=== PATIENT | male | born 2000 | race Caucasian/White ===

== ENCOUNTER 2024-09-06 06:15 | Emergency (ER) | payer SELFPAY ==
[2024-09-06 06:18] VITALS: BP 135/92
[2024-09-06 06:41] VITALS: BMI 21.0
--- NOTE | 2024-09-06 07:13 | ED.GENMED ---
History of Present Illness
General
Chief Complaint: Skin Problem
Source: patient
Time Seen by Provider: 09/06/24 07:03
History of Present Illness
History of Present Illness:
24yo [id number] male with no significant past medical history presenting for evaluation of left wrist pain. Pain began about 5 days ago and was gradual in onset. 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
He woke up the following day with some redness and some to the ulnar aspect of the wrist. The pain is described as throbbing and intermittently becomes a sharp shooting pain and radiates to the hand. The pain is mild throughout the day but worsens
at night and makes it difficult for him to sleep. He has not taken anything [id number] for his symptoms. No prior history of similar symptoms. He is otherwise asymptomatic and denies any fevers, chills, paresthesias, other arthralgias. No
prior history of IVDU.
Past History
Past History
ED Past Medical History: Other (Substance abuse)
ED Past Surgical History: Other (Hernia repair)
Social History
Tobacco: Non-smoker
Alcohol: Occasional
Drug: Marijuana
Personal: Single
Phy Exam
General Physical Exam
General Presentation: well appearing and no apparent distress
General age: appears stated age
General Skin: warm and dry
General Habitus: normal
General Mental: alert
ENT Exam
ENT Exam: normocephalic
Pulmonary Exam
Pulmonary Exam: no respiratory distress
Neurological Exam
Neurological Exam: alert
Giovanni Coma Scale
Eye Opening: Spontaneous
Verbal Response: Oriented
Motor Response: Obeys Commands
GCS Total Score: 15
Musculoskeletal Exam
Musculoskeletal Exam: other (There is an area of erythema/inflammation to the ulnar aspect of the L wrist. Area of erythema is non-tender. No fluctuance. ROM of wrist is normal without pain. 2+ radial pulse. Motor and sensation intact in radial,
median, and ulnar nerve distributions. )
Skin Exam
Skin Exam: warm/dry
Psychiatric Exam
Psychiatric Exam: normal mood/affect
Course
Orders/Labs/Results
Orders:
Orders
09/06/24 07:12
[place] Wrist Left-Treatment ONCE
Ibuprofen [Motrin] 600 mg PO NOW STA
CR Hand - Left Min 3 Views Urgent
Comment:
Reason For Exam: pain, swelling
Vital Signs
Initial and Last Documented VS:
Initial Vital Signs
Temp Pulse Resp BP Pulse Ox
98.2 F 118 16 135/92 99
09/06/24 06:18 09/06/24 06:18 09/06/24 06:18 09/06/24 06:18 09/06/24 06:18
Last Documented Vital Signs
Temp Pulse Resp BP Pulse Ox
98.2 F 118 16 135/92 99
09/06/24 06:18 09/06/24 06:18 09/06/24 06:18 09/06/24 06:18 09/06/24 06:18
MDM/Problems Addressed
Differential Diagnosis Includes:
24yoM here with L wrist pain x 5 days. Throbbing pain intermittently shooting to the hand. 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 No fevers or systemic symptoms. He is well appearing in no distress. There is an area of
erythema and inflammation to the ulnar aspect of the wrist although this area is non-tender. No fluctuance, drainage, or lymphangitic streaking. ROM of wrist is normal without pain. Differential diagnosis includes but is not limited to: overuse
injury, tendonitis, inflammatory arthritis, no evidence of septic arthritis/infection, no evidence of ganglion cyst
Initial ED plan: Check L wrist x-rays. Ibuprofen for pain.
*Critical Care Note
Total Time (30-74mins, 75-104mins- exclusive of procedures): Not Applicable
Update Note
Update Note:
X-rays are negative for acute osseous abnormalities per my interpretation. No evidence of infection on exam. Will trial course of prednisone. Supportive care discussed. Advised f/u with hand surgery and strict ED return precautions discussed
including spreading redness, fevers, chills. He expressed understanding and is in agreement with plan. He was discharged in stable condition.
ED Attending Note
-
Portions of this chart may have been created with voice recognition software.� Occasional wrong word or��sound alike� substitutions may have occurred due to the inherent limitations of voice recognition software.
Discharge Plan
Departure
Patient Disposition: Home (Routine Discharge)
Date of Disposition: 09/06/24
Time of Disposition: 08:09
Patient with high blood pressure during this ER visit?: No
Discharge Problem:
Acute pain of left wrist
Instructions: Muscle, joint, and bone pain - Discharge instructions
Prescriptions:
New
prednisone 50 mg tablet
50 mg PO DAILY Qty: 5 0RF
No Action
Allergy Medicine
PO DAILY
Referrals:
NONE,* [Family Provider] -
Alan Parks MD [Active] -
Activity Restrictions/Additional Instructions:
Take prednisone as prescribed. Apply ice to affected area. Take Tylenol and ibuprofen as needed for pain. Use wrist brace for comfort.
Please follow-up with hand surgery if your symptoms persist. Return to the ER with any worsening symptoms, spreading redness, fevers, chills.
Interventions
Interventions:
*Risk Screen - Suicide Last Done: 09/06/24 06:18
*General Assessment Last Done: 09/06/24 06:18
*Neglect/Abuse Screening Last Done: 09/06/24 06:18
*ED COVID-19 Vaccine History Last Done: 09/06/24 06:18
ED-Skin Assessment Last Done: 09/06/24 06:41
Discharge Date and Time
Print Language: MOHAWK
[2024-09-06] MEDS: MOTRIN 600 MG PO (07:21)
[2024-09-06 09:10] VITALS: BP 126/74
== END 2024-09-06 09:10 | disposition home or self-care (01) ==
LOC: EMR 06:15
PROVIDERS: EMERGENCY PHYSICIAN Emergency Medicine
DX: M25.532 Pain in left wrist (principal)
CPT/HCPCS: 99283; 73130

== ENCOUNTER 2025-05-05 21:33 | Emergency (ER) | payer MEDICAID, SELFPAY ==
[2025-05-05 21:37] VITALS: BP 119/69
[2025-05-05 21:53] VITALS: BP 112/64
[2025-05-05 21:55] VITALS: BMI 20.1
[2025-05-05 22:00] VITALS: BP 106/62
[2025-05-05 23:00] VITALS: BP 104/59
[2025-05-05] MEDS: NSS 1000 IV (23:18)
[2025-05-05 23:37] LABS: Hematocrit 38.5 % (39.0-52.0); Hemoglobin 13.7 g/dL (13.0-18.0); Mean Corp Hgb Conc. 35.6 g/dL (33.0-37.0); Mean Corpuscular Volume 88.3 fL (80.0-94.0); Nucleated Red Blood Cells % 0 % (-); Platelet Count 230 10^3/uL (130-400); Red Cell Dist. Width 11.9 % (11.5-14.5)
[2025-05-05 23:59] LABS: ALT (SGPT) 18 U/L (0-50); AST (SGOT) 21 U/L (17-59); Albumin 4.2 g/dl (3.5-5.0); Alkaline Phosphatase 60 U/L (38-126); Blood Urea Nitrogen 16 mg/dl (9-20); Calcium 9.4 mg/dl (8.4-10.2); Carbon Dioxide 29 mmol/L (22-30); Chloride 105 mmol/L (98-107); Estimated Creatinine Clearance > 125 ml/min; Glucose 94 mg/dl (70-99); Potassium 3.9 mmol/L (3.5-5.1); Sodium 139 mmol/L (135-145); Total Protein 6.7 g/dl (6.3-8.2); eGFR > 60.00
[2025-05-06] VITALS: BP 106/76
--- NOTE | 2025-05-06 00:15 | ED.GENMED ---
History of Present Illness
General
Chief Complaint: Dizziness
Source: patient
Exam Limitations: none
Time Seen by Provider: 05/05/25 22:38
History of Present Illness
History of Present Illness:
Note:
CHIEF COMPLAINT(S)
Headache and dizziness.
HISTORY OF PRESENT ILLNESS
The patient is a 24-year-old male presenting with headache and dizziness that have been persisting for the past three days. The patient describes the headache as a squeezing sensation in the head that has been consistent but occasionally escalates
to severe episodes of 10/10 pain lasting a few seconds. These episodes occur randomly. The headache intensity increases when the patient lies down, feeling like increased pressure. No nausea, fever, or chest pain is reported. Mild dizziness
accompanies the headache. The patient notes a peculiar sensation behind the eyes but denies any significant visual changes.
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 The patient reports no recent head injuries but admits to daily cannabis smoking,
approximately 1-2 grams daily. Alcohol is consumed heavily on weekends. The patient denies any significant past medical issues or regular medication use except for an allergy pill occasionally due to itchy skin.
SOCIAL HISTORY
The patient reports regular use of cannabis, smoking approximately 1-2 grams daily. Alcohol consumption occurs primarily during weekends in excess. 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
PHYSICAL EXAM
General: Alert, no acute distress.
Skin: Warm, dry.
Head: Normocephalic, atraumatic.
Neck: Supple, trachea midline.
Eye Ears, nose, mouth, and throat: Oral mucosa moist, pupils equal and reactive to light.
Cardiovascular: Normal peripheral perfusion, No edema.
Respiratory: Respirations are non-labored.
Gastrointestinal: Abdomen nondistended.
Back: Normal range of motion, Normal alignment.
Musculoskeletal: Normal range of motion, normal strength.
Neurological: Alert and oriented to person, place, time, and situation, No focal neurological deficit observed.
Psychiatric: Cooperative, appropriate mood & affect.
PLAN
1. Administer basic laboratory tests and provide intravenous fluids.
2. Consider a CT scan of the head if symptoms persist after administering fluids.
3. Monitor neurological status as the patient is currently neurologically intact.
DIFFERENTIAL DIAGNOSIS
The Differential Diagnosis includes, in no particular order and is not limited to:
1. Tension headache
2. Migraine
3. Sinus headache
4. Cluster headache
5. Intracranial hypertension
6. Chemical exposure-related headache
7. Substance-induced headache
8. Cervicogenic headache
9. Anxiety or stress-related headache
10. Occipital neuralgia
EKG
My independent EKG interpretation is:
- Time of EKG: Not specified in the clinical laboratory director
- Rhythm: Sinus bradycardia
- Heart Rate: 59 bpm
- MA Interval: Normal
- QRS Duration: Normal
- QT Interval: Not specified in the clinical laboratory director
- [place]: Normal
- Abnormalities Observed:
- No evidence of acute ischemia
- Comparison to previous: T-wave inversion in inferior leads has improved
Disposition:
SUMMARY OF ENCOUNTER
The patient, a 24-year-old male, presented to the emergency department with mild headache and dizziness. He reported a recent chemical exposure at work and a history of regular marijuana use. The patient was administered a liter of intravenous
fluids, after which he reported resolution of his symptoms. Laboratory tests were conducted and returned normal results. The use of a CT scan was considered but ultimately declined by the patient through shared decision-making.
PLAN
1. Discharge the patient with a focus on monitoring symptoms.
2. Educate the patient about potential triggers for headache and dizziness, including chemical exposure and substance use.
3. Advise the patient on the importance of follow-up care if symptoms recur or worsen.
PATIENT EDUCATION AND COUNSELING
The patient was educated on the importance of avoiding potential headache triggers, including chemical exposure and substance use. Return instructions were provided, emphasizing the need to seek medical attention if symptoms return or worsen.
MEDICATION RECONCILIATION
A liter of intravenous fluids was administered during the visit.
MEDICAL DECISION MAKING
-Complexity of Data Reviewed: The patients concerns were noted, including possible chemical exposure and substance use, contributing to the symptoms. Differential diagnosis considerations included tension headache, migraine, sinus headache, cluster
headache, intracranial hypertension, chemical exposure-related headache, substance-induced headache, cervicogenic headache, anxiety or stress-related headache, and occipital neuralgia.
-Data:
Category 1
My independent interpretation of the EKG: Sinus bradycardia with a heart rate of 59 bpm, normal MA and QRS durations, with improved T-wave inversion in inferior leads as compared to prior readings.
Category 2
Input from independent historians was not applicable as data corroborated by patient.
-Risk: Consideration of Admission/Observation: Escalation of care including admission/observation was considered given the complexity and risk of the patients presenting complaint, exam findings, and their underlying comorbidities. However,
ultimately, I feel the patient is safe for outpatient management with close follow-up. Reasoning: Work-up is reassuring, does not reveal any acute life/organ-threatening processes, patients symptoms are well controlled upon reevaluation,
reexamination is reassuring, vitals are stable, patient agreeable with discharge, reliable for follow-up.
DIAGNOSIS
1. Headache, unspecified type (R51)
2. Dizziness and giddiness (R42)
3. Potential chemical exposure-related symptoms (T59.9)
Past History
Past History
ED Past Medical History: Other (Substance abuse)
ED Past Surgical History: Other (Hernia repair)
Social History
Tobacco: Non-smoker
Alcohol: Occasional
Drug: Marijuana
Personal: Single
Phy Exam
Physical Exam
Physical Exam:
.
Course
Orders/Labs/Results
Orders:
Orders
05/05/25 22:51
Electrocardiogram (*1) Urgent
Reason for Study: Vertigo / Dizzy
EKG- Treatment ONCE
05/05/25 23:18
0.9% Sodium Chloride 1000 ml [Nss] 1,000 ml IV BOLUS
05/05/25 23:26
Complete Blood Count/With Diff Urgent
Comprehensive Metabolic Panel Urgent
TSH Reflex To Free T4 Urgent
Abnormal Lab Results
05/05/25
23:26
RBC 4.36 L 10^6/uL
(4.70-6.10)
Hct 38.5 L %
(39.0-52.0)
MCH 31.4 H pg
(27.0-31.0)
05/05/25 23:26
05/05/25 23:26
Vital Signs
Initial and Last Documented VS:
Initial Vital Signs
Temp Pulse Resp BP Pulse Ox
97.0 F 70 20 119/69 100
05/05/25 21:37 05/05/25 21:37 05/05/25 21:37 05/05/25 21:37 05/05/25 21:37
Last Documented Vital Signs
Temp Pulse Resp BP Pulse Ox
97.0 F 85 19 106/76 100
05/05/25 21:37 05/06/25 00:30 05/06/25 00:30 05/06/25 00:00 05/06/25 00:21
*Pulse Oximetry
SaO2: 100
Oxygen Mode of Delivery: Room air
Patient hypoxic: no
*Critical Care Note
Total Time (30-74mins, 75-104mins- exclusive of procedures): Not Applicable
Patient Management
Social determinants of health affecting care: Strong social support
ED Attending Note
-
Portions of this chart may have been created with voice recognition software.� Occasional wrong word or��sound alike� substitutions may have occurred due to the inherent limitations of voice recognition software.
Discharge Plan
Departure
Patient Disposition: Home (Routine Discharge)
Date of Disposition: 05/06/25
Time of Disposition: 00:16
Patient with high blood pressure during this ER visit?: No
Condition: Good
Discharge Problem:
Dizziness, Headache
Instructions: Headaches in adults, Dizziness
Prescriptions:
No Action
Allergy Medicine
PO DAILY
prednisone 50 mg tablet
50 mg PO DAILY Qty: 5 0RF
Referrals:
Richard Curry DO [Family Provider, Family Practice]
Activity Restrictions/Additional Instructions:
Thank You for choosing [facility].
It was a pleasure meeting you and taking part in your care. We hope for your continued healing and wellness.
Please read discharge instructions in their entirety. However, they are for general education and may not describe your exact diagnosis at discharge. Information on your ER visit and medical conditions were discussed with you along with appropriate
follow up information...
If indicated, please take your medications as instructed and indicated on discharge paperwork.
Please schedule a follow up appointment as directed. Call to schedule an appointment
Please return to the emergency department with ANY change in, persisting, or worsening of symptoms. If any of your symptoms do not improve, or persist, or become more severe within 6-12 hours, please return to the emergency department for further
care.
Please return to the emergency department if you develop a headache, neck pain/stiffness, fever greater than 100.4F, chest pain, shortness of breath, persistent nausea, vomiting, slurred speech, difficulty walking, numbness/tingling, weakness, signs
of infection or any other symptoms that are worrisome to you.
If you have any questions or concerns please do not hesitate to call the Hospital at or E-mail me directly at [email or web address]
Interventions
Interventions:
*Risk Screen - Suicide Last Done: 05/05/25 21:37
*General Assessment Last Done: 05/05/25 21:37
*Neglect/Abuse Screening Last Done: 05/05/25 21:37
*ED- Fall Risk Assessment Last Done: 05/06/25 00:15
*ED COVID-19 Vaccine History Last Done: 05/05/25 21:42
*Nursing Disposition Last Done: 05/06/25 00:38
ED- Neurological Assessment Last Done: 05/05/25 21:57
ED Swallowing Screen Last Done: 05/05/25 21:57
Discharge Date and Time
Discharge Date/Time: 05/06/25 00:38
Print Language: BRUNEIAN
== END 2025-05-06 00:38 | disposition home or self-care (01) ==
LOC: EMR 21:33
PROVIDERS: EMERGENCY PHYSICIAN Student in an Organized Health Care Education/Training Program; FAMILY PHYSICIAN Family Medicine
DX: R42 Dizziness and giddiness (principal); R51.9 Headache, unspecified; F12.90 Cannabis use, unspecified, uncomplicated
CPT/HCPCS: 99284; 80053; 84443; 85025; 93005